=== PATIENT | male | born 1985 | race Caucasian/White ===

== ENCOUNTER 2016-05-24 09:28 | Emergency (ER) | payer MEDICAID ==
[~2016-05-24] VITALS: Ht 185.4 cm; Wt 81.0 kg
[~2016-05-24 09:28] MED LIST: IBUP-238 PO
[2016-05-24 09:42] VITALS: BP 116/78; PULSE 65; RESP 16; TEMP 97.9; O2SAT 97
[2016-05-24] MEDS ORDERED: ULTR50TA5 PO (10:17)
[2016-05-24] MEDS ORDERED: IBUP800T23 PO (10:17)
[2016-05-24] MEDS ORDERED: CLEO300C2 PO (10:17)
--- NOTE | 2016-05-24 10:18 | PD ---
HPI . Toothache Chief Complaint: Oral / Dental Pain or Problem Time Seen by Provider: 10:09 Travel History International Travel<30 days: No Contact w/Intl Traveler<30days: No Traveled to known affect area: No History of Present Illness HPI Patient presents with a toothache. Onset was about 2 or 3 days ago. It has been getting gradually worse. He describes an aching pain. He states that it is now severe. It is now associated with some facial swelling. He has not taken anything for it. He has not noted any exacerbating or relieving factors. [facility] Past Medical History Asthma: Yes Cancer: No Cardiovascular Problems: No Diabetes: No Diminished Hearing: No Endocrine: No Genitourinary: No Hepatitis: No Musculoskeletal: No Neurologic: No Psychiatric: No Reproductive: No Respiratory: No Past Surgical History Body Medical Devices: PIN AND PLATES TO RIGHT HAND Pacemaker: No Other Surgery: Yes Social History Alcohol Use: Yes (SOCIALLY) Tobacco Use: No Substance Use: Yes (HX MARIJUANA OCC (DENIES THIS VISIT)) Allergies-Medications (Allergen,Severity, Reaction): Coded Allergies: No Known Allergies (Verified , 05/24/16) Reported Meds & Prescriptions Reported Meds & Active Scripts Active No Active Prescriptions or Reported Medications Review of Systems Except as stated in HPI: all other systems reviewed are Neg General / Constitutional: No: Fever, Chills HENT: Positive: Dental Difficulties Physical Exam Narrative GENERAL: Awake and alert and in no acute distress. SKIN: Warm and dry. HEENT: Teeth #17, 18 and 19 have significant caries. Tooth #17 is barely visible above the gumline with deep decay. #18 is actually decay to below the gumline. #19 has a chip on the posterior aspect of the tooth associated decay. The entire area with percussion. He has associated swelling of the left jaw. NECK: There is no cervical lymphadenopathy. CARDIOVASCULAR: Regular rate and rhythm. RESPIRATORY: No accessory muscle use. MUSCULOSKELETAL: No obvious deformities. No edema. NEUROLOGICAL: Awake and alert. No obvious cranial nerve deficits. Motor grossly within normal limits. Normal speech. PSYCHIATRIC: Appropriate mood and affect; insight and judgment normal. Data Data Last Documented VS Vital Signs Date Time Temp Pulse Resp B/P Pulse Ox O2 Delivery O2 Flow Rate FiO2 05/24/16 09:42 97.9 65 16 116/78 97 MDM Medical Decision Making Medical Screen Exam Complete: Yes Emergency Medical Condition: Yes Differential Diagnosis Differential diagnosis of a toothache includes but is not limited to dental caries, dental abscess, gingivitis, drug-seeking behavior. Narrative Course Patient presents for the treatment of a toothache. He has a dental abscess. Treated with Cleocin, Motrin and Ultram. He will be instructed to follow-up with a dentist. Diagnosis Primary Impression: Dental abscess Referrals: Dentist Patient Instructions: Dental Abscess (ED), General Instructions Med/Other Pt SpecificInfo: Prescription(s) given Scripts Tramadol (Ultram)50 Mg Tab50 Mg PO Q4H PRN (PAIN) #12 TAB Ref 0 Prov:Monalisa Rodríguez MD 05/24/16 Ibuprofen 800 Mg [id number] Mg PO Q8H PRN (pain) #30 TAB Ref 0 Prov:Monalisa Rodríguez MD 05/24/16 Clindamycin (Cleocin)300 Mg [id number] Mg PO Q8H 10 Days Ref 0 Prov:Monalisa Rodríguez MD 05/24/16 Disposition: 01 DISCHARGE HOME Condition: Stable Monalisa Rodríguez MD May 24, 2016 10:18
== END 2016-05-24 10:28 | disposition home or self-care (01) ==
LOC: PHEFT 09:28
DX: K04.7 Periapical abscess without sinus (principal)
CPT/HCPCS: 99283